=== PATIENT | male | born 1995 | race American Indian/Alaskan Native ===

== ENCOUNTER 2021-01-03 17:06 | Inpatient (IN) | payer SELFPAY ==
[2021-01-03 18:07] LABS: #Basophils 0.1 thou/uL (0.0-0.2); #Eosinphils 0.1 thou/uL (0.0-0.7); #Lymphocytes 3.9 thou/uL (1.20-3.40); #Monocytes 0.8 thou/uL (0.11-0.59); #Neutrophils 3.3 thou/uL (1.40-6.50); %Basophils 1.5 % (0.0-1.0); %Eosinophils 1.5 % (0.0-10.0); %Lymphocytes 47.8 % (21.0-51.0); %Monocytes 9.2 % (0.0-10.0); %Neutrophils 39.9 % (42.0-75.0); Hemoglobin 15.7 g/dL (14.0-18.0); Mean Corpuscular HGB CONC 34.6 g/dL (32.0-36.0); Mean Corpuscular Hemoglobin 31.1 pg (27.0-31.0); Mean Corpuscular Volume 89.9 fL (78.0-98.0); Mean Platelet Volume 7.7 fL (7.4-10.4); Platelet Count 271 thou/uL (130-400); RBC Distribution Width 11.8 % (11.5-14.5); Red Blood Cell (RBC) Count 5.06 mill/uL (4.70-6.10); White Blood Cell (WBC) Count 8.2 thou/uL (4.8-10.8)
[2021-01-03 18:27] LABS: ALT (SGPT) 20 U/L (8-55); AST (SGOT) 20 U/L (5-34); Albumin 4.5 g/dL (3.5-5.0); Alkaline Phosphatase 61 U/L (40-110); Anion Gap 15 mmol/L (10-20); BUN (Urea Nitrogen) 10 mg/dL (8.9-20.6); Bilirubin, Total 0.6 mg/dL (0.2-1.2); Calc. Creatinine Clearance 0 mL/min (70-130); Calcium 9.5 mg/dL (7.8-10.44); Carbon Dioxide 21 mmol/L (22-29); Chloride 108 mmol/L (98-107); Globulin 2.8 g/dL (2.4-3.5); Glucose 116 mg/dL (70-105); Potassium 3.5 mmol/L (3.5-5.1); Protein, Total 7.3 g/dL (6.0-8.3); Sodium 140 mmol/L (136-145)
[2021-01-03] MEDS ORDERED: Ondansetron PF 4 MG/2 ML Vial ONE (19:45)
[2021-01-03] MEDS ORDERED: Pantoprazole 40 MG VIAL ONE (19:45)
[2021-01-03] MEDS ORDERED: Acetaminophen 325 MG TAB PO PRN (20:34)
[2021-01-03] MEDS ORDERED: Ondansetron PF 4 MG/2 ML Vial IVP PRN (20:34)
[2021-01-03] MEDS ORDERED: Sodium Chloride 0.9% (PF) 10 ML VIAL FS PRN (21:30)
[2021-01-03 22:30] VITALS: BMI 24.0
[2021-01-04] MEDS: Pantoprazole 40 MG VIAL IVP SCH ×3 (00:14→21:31)
[2021-01-04 02:03] LABS: SARS-CoV-2 NAA Rapid Test Not Detected (NotDetected)
[2021-01-04 12:14] LABS: Hemoglobin 15.1 g/dL (14.0-18.0)
[2021-01-04 18:06] LABS: Hemoglobin 14.7 g/dL (14.0-18.0)
[2021-01-04 18:29] LABS: Acetaminophen Less than 6.0 mcg/mL (10.0-30.0); Alcohol Less than 10 mg/dL (Less than 10); Salicylate Less than 8.0 mg/dL (15.0-30.0)
[2021-01-04 20:04] LABS: Amphetamine Not Detected (NotDetected); Barbiturates Screen Not Detected (NotDetected); Benzodiazepine Screen Not Detected (NotDetected); Cocaine Metabolite Screen Not Detected (NotDetected); Medtox Control Line Valid? VALID (VALID); Medtox Reader # READER 4; Methadone Not Detected (NotDetected); Methamphetamine Not Detected (NotDetected); Opiate Screen Not Detected (NotDetected); Oxycodone Screen Not Detected (NotDetected); Phencyclidine (PCP) Not Detected (NotDetected); THC/Cannabinoid Screen Detected (NotDetected); Tricyclic Screen Not Detected (NotDetected)
[2021-01-05] MEDS: Pantoprazole 40 MG VIAL IVP SCH (08:31)
[2021-01-05 11:52] VITALS: BP 134/84; TEMP 97.9
== END 2021-01-05 13:45 | disposition home or self-care (01) | DRG 378 ==
LOC: ERS 17:06 → SJJU 20:40
PROVIDERS: ADMIT Internal Medicine; ATTEND Internal Medicine
DX: K92.2 Gastrointestinal hemorrhage, unspecified (principal); R45.851 Suicidal ideations; Z66 Do not resuscitate; Z20.822 Contact with and (suspected) exposure to COVID-19; F25.0 Schizoaffective disorder, bipolar type; F41.9 Anxiety disorder, unspecified; K59.00 Constipation, unspecified; T18.9XXA Foreign body of alimentary tract, part unspecified, initial encounter; Z87.891 Personal history of nicotine dependence; Z79.899 Other long term (current) drug therapy; Z91.14 Patient's other noncompliance with medication regimen; T50.995A Adverse effect of other drugs, medicaments and biological substances, initial encounter
CPT/HCPCS: 36415; 74176; 80053; 80306; 80307; 83605; 85014; 85018; 85025; 96374; 96375; C9113; J2405; U0002; U0005

== ENCOUNTER 2021-01-18 06:57 | Outpatient (CLI) | payer OTHER | END 2021-01-18 06:58 | disposition home or self-care (01) | LOC: RAD 06:57 | PROVIDERS: ATTEND Physician Assistant Medical | DX: K59.00 Constipation, unspecified (principal); T18.9XXD Foreign body of alimentary tract, part unspecified, subsequent encounter; K44.9 Diaphragmatic hernia without obstruction or gangrene; K21.9 Gastro-esophageal reflux disease without esophagitis | CPT/HCPCS: 74246 ==